=== PATIENT | male | born 2000 | race Caucasian/White ===

== ENCOUNTER → 2020-07-13 | Outpatient (CLI) | payer OTHER, SELFPAY ==
[2020-07-13 14:10] VITALS: BMI 24.3
== END | disposition home or self-care (01) ==
LOC: LABSPEC 15:10
PROVIDERS: Visit Provider Physician Assistant
DX: Z20.828 Contact with and (suspected) exposure to other viral communicable diseases (principal)
CPT/HCPCS: 87635; U0003